=== PATIENT | female | born 1965 | race Caucasian/White ===

== ENCOUNTER 2017-07-14 19:32 | Emergency (ER) | payer OTHER ==
[~2017-07-14] VITALS: Ht 162.6 cm; Wt 74.4 kg
--- OUTSIDE RECORDS SUMMARY | 2017-07-14 19:34 | XMS REPORT | Summary of Care ---
Author Author Blank Busch LVN Organization Unknown Address [facility] Phone Unavailable Care Team Providers [employer] Name Role Phone DELPHINE Woodall, ABA Unavailable Unavailable Blank Busch LVN Unavailable Unavailable FRANCES Woodall, DANIELLE Unavailable Unavailable CORNEL JOSHI DC, JULIANNE RHOADES Unavailable Unavailable CORNEL Woodall, JULIANNE Nguyen Unavailable Unavailable Unavailable Functional Status Name Dates Details Functional status health issues are not documented Status: Name Dates Details Cognitive status health issues are not documented Status: Problems Name Dates Details Neck pain (723.1, M54.2) Status: Active Screen for colon cancer (V76.51, Z12.11) Status: Active Dysphagia (787.20, R13.10) Status: Active Axillary mass (782.2, R22.30) Status: Active EIC (epidermal inclusion cyst) (706.2, L72.0) Status: Active Upper respiratory infection, acute (465.9, J06.9) Status: Active Skin lumps (782.2, R22.9) Status: Active Arthralgia (719.40, M25.50) Status: Active Joint pain (719.40, M25.50) Status: Active Fatigue (780.79, R53.83) Status: Active Ds DNA antibody positive (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 Active Naproxen 500 MG Oral Tablet TAKE 1 TABLET EVERY 12 HOURS WITH FOOD NEEDED. * Quantity: 60 Refills: 1 ABA AKERS M.D. * Start : 26-Dec-2016 Active Sulfamethoxazole-Trimethoprim 800-160 MG Oral Tablet 1 PO BID X 5 DAYS * Quantity: 10 Refills: 0 DANIELLE DANIELS M.D. * Start : 06-Mar-2017 Active Allergies and Adverse Reactions Name Dates Details No Known Drug Allergies (Allergy) Status: Active Past Medical History Name Dates Details History of Disc herniation (722.2) Status: Resolved History of menorrhagia (V13.29, Z87.42) Status: Resolved History of seasonal allergies (V15.09, Z88.9) Status: Resolved Procedures Procedure Dates Details History of Colonoscopy Completed History of Total Abdominal Hysterectomy Completed History of cyst excision Completed Immunization Name Dates Details Immunizations not documented Family History Name Dates Details Family history of Colon cancer (153.9, C18.9) Status: Active Name Dates Details Family history of hypertension (V17.49, Z82.49) Status: Active Family history of gout (V18.19, Z82.69) Status: Active Family history of osteoporosis (V17.81, Z82.62) Status: Active Name Dates Details Family history of hypertension (V17.49, Z82.49) Status: Active Family history of cardiac disorder (V17.49, Z82.49) Status: Active Social History Name Dates Details - Status: Name Dates Details Never smoker Vital Signs Date Test Result Details [id number] BP Systolic 130 mm[Hg] Status: Comments: Location: RUE; Position: Sitting BP Diastolic 76 mm[Hg] Status: Comments: Location: RUE; Position: Sitting Heart Rate 62 /min Status: Comments: Location: R Brachial Artery; [id number] BP Systolic 152 mm[Hg] Status: Comments: Location: LUE; Position: Sitting BP Diastolic 85 mm[Hg] Status: Comments: Location: LUE; Position: Sitting Heart Rate 63 /min Status: Comments: Location: L Brachial Artery; Height 64 in Status: Weight 162.375 lb Status: Body Mass Index Calculated 27.87 kg/m2 Status: Body Surface Area Calculated 1.79 m2 Status: Temperature 97.4 f Status: Comments: Method: Temporal Respiration Rate 16 /min Status: Results Date Description Value Details [id number] [O] Urine Dipstick (In Office) LEUKOCYTES trace NITRITE neg (Normal) UROBILINOGEN normal (Normal) PROTEIN trace pH 5 URINE BLOOD trace SPECIFIC GRAVITY 1.005 KETONES neg (Normal) BILIRUBIN normal (Normal) GLUCOSE normal (Normal) COLOR URINE pale yellow APPEARANCE cloudy 06-Mar-20170:00 [[facility]] CULTURE, URINE, ROUTINE CULTURE (Abnormal) Comments: CULTURE, URINE, ROUTINE MICRO NUMBER: [id number] TEST STATUS: FINAL SPECIMEN SOURCE: NOT GIVEN SPECIMEN QUALITY: ADEQUATE RESULT: Greater than 100,000 CFU/mL of Escherichia coli E.coli ------ INT CHARBEL AMOX/CLAVULANATE S <= 2 AMPICILLIN S <=2 AMP/SULBACTAM S <=2 CEFAZOLIN NR <=4 1 CEFEPIME S <=1 CEFTRIAXONE S <=1 CIPROFLOXACIN S <=0.25 GENTAMICIN S <=1 IMIPENEM S <=0.25 LEVOFLOXACIN S <=0.12 NITROFURANTOIN S <=16 PIP/ TAZOBACTAM S <=4 TOBRAMYCIN S <=1 TRIMETHOPRIM/ SULFA S <=20S=Susceptible I=Intermediate R=Resistant *=Not TestedNR= Not Reported NN=See Therapy CommentsTHERAPY COMMENTS Note 1: ORAL therapy: A cefazolin CHARBEL of < 32 predicts susceptibility to the oral agents cefaclor, cefdinir, cefpodoxime, cefprozil, cefuroxime, cephalexin, and loracarbef when used for therapy of uncomplicated UTIs due to E. coli, K. pneumoniae, and P. mirabilis. PARENTERAL therapy: A cefazolin CHARBEL of > 8 indicates resistance to parenteral cefazolin. An alternate test method must be performed to to confirm susceptibility to parenteral cefazolin. Plan of Care Name Dates Details Planned Observations Planned Goals not documented Instructions Name Dates Details Instructions not documented Encounters Appointment; DEBBY COREA M.D. Encounter Diagnosis: Problem not documented On: 23-Aug-2015 8:00 Appointment; BRE LIVINGSTON M.D. Encounter Diagnosis: Problem not documented On: 24-Aug-2015 13:00 Appointment; MINERVA POP M.D. Encounter Diagnosis: Problem not documented On: 08-Sep-2015 11:15 Appointment; MINERVA POP M.D. Encounter Diagnosis: Problem not documented On: 29-Sep-2015 13:45 Appointment; SAMANTHA SHAFER D.O. Encounter Diagnosis: Problem not documented On: 13-Apr-2016 10:15 Appointment; CARLEY WELCH NP Encounter Diagnosis: Problem not documented On: 19-Dec-2016 13:00 Appointment; ABA AKERS M.D. Encounter Diagnosis: Problem not documented On: 26-Dec-2016 13:00 Appointment; DANIELLE DANIELS M.D. Encounter Diagnosis: Problem not documented On: 06-Mar-2017 10:15
[2017-07-14] MEDS ORDERED: ZYRTEC10 M3 (19:46)
[2017-07-14] MEDS ORDERED: KETOROLAC TROMETHAMINE 30 MG/ML VIAL IV STA (19:48)
[2017-07-14] MEDS ORDERED: METOCLOPRAMIDE HCL 10 MG/2ML VIAL IV ONE (20:00)
[2017-07-14] MEDS ORDERED: SODIUM CHLORIDE 0.9% 1000ML 1,000 ML IV SCH (20:00)
[2017-07-14] MEDS ORDERED: MORPHINE SULFATE 5 MG/ML VIAL IV ONE (20:00)
[2017-07-14] MEDS ORDERED: TAMSULOSIN HCL 0.4 MG CAP PO SCH (20:45)
[2017-07-14 21:04] VITALS: BP 154/72
== END 2017-07-14 21:00 | disposition home or self-care (01) ==
LOC: FSED 19:32
DX: R10.31 Right lower quadrant pain (principal); R11.0 Nausea; N20.1 Calculus of ureter
CPT/HCPCS: 74174; 80048; 81003; 85025; 99284; J1885; J2270; J2765; J7030